=== PATIENT | male | born 1960 | race Caucasian/White ===

== ENCOUNTER 2023-05-07 21:36 | Emergency (ER) | payer BC ==
[2023-05-07] MEDS ORDERED: Bacitracin Oint 1 GM U/D Packet TOP ONE (21:55)
[2023-05-07] MEDS ORDERED: Cephalexin 500 MG Cap PO ONE (21:56)
== END 2023-05-07 22:14 | disposition home or self-care (01) ==
LOC: MW.ED 21:36
DX: S90.521A Blister (nonthermal), right ankle, initial encounter (principal); I10 Essential (primary) hypertension; Z79.899 Other long term (current) drug therapy; Z88.2 Allergy status to sulfonamides; X58.XXXA Exposure to other specified factors, initial encounter
CPT/HCPCS: 99283; A9270; 99282